=== PATIENT | male | born 1985 | race Caucasian/White ===

== ENCOUNTER 2017-03-11 20:52 | Inpatient (IN) | payer OTHER ==
--- NOTE | ~2017-03-11 | DS ---
Unit #: [id number] #: [id number] Patient: GERMÁN BRANCH [id number] [facility] [address] [place] [address] [id number] MR#: [id number] NAME: GERMÁN BRANCH ROOM: [facility] Age: 31 Sex: M Admission Date: 03/11/2017 : 1985 Discharge Date: 03/12/2017 Attending Physician: Mikhail Maxwell M.D. Primary Care Physician: Generic Doctor Not In System DISCHARGE SUMMARY REASON FOR ADMISSION The patient is a 31-year-old white male with a history of opioid dependence, admitted for detox. HOSPITAL COURSE The patient was admitted to the [address] [place] [address] unit and placed on routine detoxification protocol for opioids. On the morning of 03/12/2017, the patient was seen by this physician. At that time, he requested discharge from the hospital. He denied suicidal ideation consistently throughout his stay in the hospital and was not felt to meet criteria for involuntary hospitalization. As per his request, discharge was ordered. FINAL DIAGNOSES Opioid use disorder, degenerative disk disease, migraine headache. DISPOSITION ON DISCHARGE The patient is discharged on no psychotropic or other medications. FOLLOWUP Followup will take place through the auspices of community mental health resources. PROGNOSIS The patient's prognosis is considered fair. Dictated by... Mikhail Maxwell M.D. CB/karolina TD: 03/13/2017 00:59 JOB #: [id number] Unit #: [id number] #: [id number] Patient: GERMÁN BRANCH DISCHARGE SUMMARY Page 1 of 1 X Mikhail Maxwell MD X DISCHARGE SUMMARY
--- NOTE | ~2017-03-11 | PA ---
Unit #: [id number] #: [id number] Patient: GERMÁN BRANCH [id number] [facility] [address] [place] [address] [id number] MR#: [id number] NAME: GERMÁN BRANCH ROOM: [facility] Age: 31 Sex: M Admission Date: 03/11/2017 : 1985 Date of Assessment: 03/12/2017 Attending Physician: Mikhail Maxwell M.D. Admitting Physician: Mikhail Maxwell M.D. Primary Care Physician: Generic Doctor Not In System PSYCHIATRIC ASSESSMENT IDENTIFYING INFORMATION The patient is a 31-year-old white male admitted in [address] [place] [address] for opioid detox. CHIEF COMPLAINT "Can I go home." INFORMANT(S) Patient, reliability is fair. HISTORY OF PRESENT ILLNESS The patient is a 31-year-old white male with a history of opioid and heroin dependence. The patient reports that he is also been abusing fentanyl. The patient reports that he has been diagnosed with degenerative disc disease and is currently attempting to gain disability for this disorder, but because of having prescribed pain medication he reports he has become addicted to intravenous heroin. He has no prior history of chemical dependence of other psychiatric treatment per his report apart from a stay in the hospital at the age of 9 years when he states he was voicing suicidal ideation. He is currently on no prescribed psychotropic medication. He reports he is prescribed Fioricet for headache. The patient reports no current suicidal or homicidal ideation. He denies any psychotic symptoms. HE exhibits little in the way of signs or symptoms of withdrawal during today's interview and is requesting discharge stating "I would [facility] be going to [facility]." PAST PSYCHIATRIC HISTORY As above. PAST MEDICAL HISTORY History of headache and degenerative disc disease. MEDICATIONS Fioricet. ALLERGIES None. FAMILY HISTORY Noncontributory. SOCIAL HISTORY The patient lives with his parents. He is not presently employed. He Unit #: [id number] #: [id number] Patient: GERMÁN BRANCH completed his GED. He reports substance use as noted previously and is a smoker. MENTAL STATUS EXAM At this time, reveals the patient to be well developed, well nourished, white male appearing his stated age. He is moderate physical distress related to opioid withdrawal. He is awake, alert and oriented in all spheres. His mood is euthymic, his affect full range. Speech is generally relevant and coherent. There are no gross deficits in memory or cognition noted. Intelligence is judged to be in the average range based on fund of knowledge. The patient is cooperative throughout the interview. He is currently denying suicidal or homicidal ideation or psychotic features. His judgment and insight appear to be intact. ASSETS AND LIABILITIES ASSETS: Motivation for change. LIABILITIES: Lack of resources. Lack of investment in treatment. DIAGNOSTIC IMPRESSION 1. Opioid use disorder. 2. Degenerative disc disease. 3. Migraine headache by history. TREATMENT PLAN The patient is requesting discharge and does not meet criteria for involuntary hospitalization therefore his request for discharge will be ordered. Dictated by... Mikhail Maxwell M.D. García TD: 03/12/2017 14:23 JOB #: [id number] PSYCHIATRIC ASSESSMENT Page 1 of 1 X Mikhail Maxwell MD X PSYCHIATRIC ASSESSMENT
--- NOTE | ~2017-03-11 | HP ---
Unit #: [id number] #: [id number] Patient: NICHOLAS BRANCH [id number] [facility] [address] [place] [address] [id number] I MR#: [id number] NAME: NICHOLAS BRANCH ROOM: P212 Age: 31 Sex: M Admission Date: 03/11/2017 : 1985 Attending Physician: Mikhail Maxwell M.D. Admitting Physician: Mikhail Maxwell M.D. Primary Care Physician: Generic Doctor Not In System HISTORY AND PHYSICAL Nicholas is a 31 year old who was admitted and discharged within the first 24 hours. He was not seen for an H and P. Dictated by... Evita Coy P.A.-C. for Bhargav Alba/jennifer TD: 03/12/2017 18:23 JOB #: [id number] HISTORY AND PHYSICAL Page 1 of 1 X Evita Coy X HISTORY AND PHYSICAL
[2017-03-12 09:48] LABS: BASOPHIL% 0.2 % (0-2.5); DIFF IND NO; EOSINOPHIL% 0.2 % (0.0-7.0); HEMOGLOBIN 14.3 gm/dL (13.0-16.0); LYMPHOCYTE# 1.6 X10e3 (1.0-3.5); LYMPHOCYTE% 14.3 % (17.0-45.0); MEAN CELL VOLUME 88.9 FL (83-96); MEAN CORPUSCULAR HEMOGLOBIN 30.3 PG (28-34); MEAN CORPUSCULAR HGB CONC 34.1 g/dL (30-36); MEAN PLATELET VOLUME 7.2 FL (6.5-11.5); MONOCYTE# 0.8 X10e3 (0-1.0); MONOCYTE% 6.9 % (3.0-12.0); NEUTROPHIL# 8.9 X10e3 (1.5-7.1); NEUTROPHIL% 78.4 % (40-75); PLATELET COUNT 290 X10e3 (140-420); RED BLOOD COUNT 4.72 X10e (3.90-5.60); RED CELL DISTRIBUTION WIDTH 13.7 % (11.0-15.5); WHITE BLOOD COUNT 11.3 X10e3 (4.0-10.5)
[2017-03-12 09:56] LABS: ALBUMIN SERUM 3.7 g/dL (3.5-5.0); BILIRUBIN,TOTAL 0.5 mg/dL (0.2-2.0); CALCIUM SERUM 9.2 mg/dL (8.4-10.2); CREATININE SERUM 0.5 mg/dL (0.6-1.4); GLOM FILT RATE Estimated 145.5 mL/min (>60); POTASSIUM 3.8 mmol/L (3.5-5.1)
[2017-03-12 12:35] LABS: URINE APPEARANCE CLEAR; URINE BILIRUBIN NEG (NEG); URINE BLOOD NEG (NEG); URINE COLOR DK YELLOW; URINE GLUCOSE NEG (NEG); URINE KETONE NEG (NEG); URINE LEUKOCYTE ESTERASE NEG (NEG); URINE NITRATE NEG (NEG); URINE PH 6.5 (5-8); URINE PROTEIN NEG (NEG); URINE SPECIFIC GRAVITY 1.016 (1.003-1.035)
[2017-03-12 12:47] LABS: AMPHETAMINE NEG (NEG); BARBITURATES POS (NEG); BENZODIAZEPINES NEG (NEG); COCAINE NEG (NEG); MARIJUANA NEG (NEG); OPIATES NEG (NEG); TRICYCLIC ANTIDEPRESSANTS NEG (NEG); U METHADONE NEG (NEG)
[2017-03-17 17:06] LABS: HA AB IGM (HEPPAN) Nonreactive (()); HB CORE AB IGM (HEPPAN) Nonreactive (Nonreactive); HB S AG (HEPPAN) Nonreactive (Nonreactive); HEP C AB (HEPPAN) Nonreactive (Nonreactive); HEP C AB SIGNAL TO CUTOFF 0.09 ratio (<1.00)
== END 2017-03-12 15:40 | DRG 897 ==
LOC: P2S 20:52
PROVIDERS: Specialist
PROC: HZ2ZZZZ Detoxification Services for Substance Abuse Treatment (ICD-10-PCS; principal; 2017-03-12)
DX: F11.20 Opioid dependence, uncomplicated (principal); G43.909 Migraine, unspecified, not intractable, without status migrainosus
CPT/HCPCS: 80053; 80074; 80307; 81003; 85025; 86592; 87806